=== PATIENT | male | born 1945 | race Caucasian/White ===

== ENCOUNTER → 2024-03-01 12:11 | Outpatient (CLI) | payer OTHER, SELFPAY ==
--- NOTE | 2024-03-01 12:19 | DI.ECHO.S_ITS ---
[facility] : : [address] : : [place] : : [id number] : : Phone: [phone] Echocardiogram Report + + :Name: FRANKLIN SOLANO Study Date: 03/01/2024 Height: 72 in : :Hospital ReadingLocation: Weight: 225 lb : : Gender: Male BSA: 2.2 m2 : :: 1945 Age: 79 yrs BP: 135/71 mmHg: :Reason For Study: HYPERTENSION : :Ordering Physician: SVETA, : :FREDA Performed By: Demi Da Silva : :Referring: FREDA BANGURA : + + Interpretation Summary Normal left ventricle size with ejection fraction 55-60%. Septal motion is consistent with conduction abnormality. The right ventricle is borderline dilated. The right ventricular systolic function is normal. There is mild biatrial enlargement. The aortic valve is slightly calcified. There is mild aortic regurgitation. There is mild mitral annular calcification. Procedure: A two-dimensional transthoracic echocardiogram with color flow and Doppler was performed. The study quality was technically adequate. There is no prior echocardiogram noted for this patient. The heart rate ranged between 60-76 bpm during the study. Left Ventricle: The left ventricle is normal in size and wall thickness. The ejection fraction is estimated to be 55-60%. Septal motion is consistent with conduction abnormality. There are no other obvious focal wall motion abnormalities. Diastolic function could not be accurately assessed due to unobtainable data. Right Ventricle: The right ventricle is borderline dilated. The right ventricular systolic function is normal. Atria: There is mild biatrial enlargement. There is no Doppler evidence for an interatrial shunt. Mitral Valve: There is mild mitral annular calcification. The mitral valve leaflets appear mildly thickened, but open well. There is trace mitral regurgitation. Aortic Valve: The aortic valve is trileaflet. The aortic valve opens well. The aortic valve is slightly calcified. There is no aortic valve stenosis. There is mild aortic regurgitation. Tricuspid Valve: The tricuspid valve is normal in structure and function. There is a trace or physiologic amount of tricuspid regurgitation. The right ventricular systolic pressure is estimated to be at least 27 mmHg based on an estimated right atrial pressure of 3 mm Hg. Pulmonic Valve: The pulmonic valve leaflets are thin and pliable; valve motion is normal. There is trace pulmonic regurgitation. Great Vessels: The aortic root is normal size. The dimensions of the ascending aorta are normal. The IVC is of normal diameter and collapses greater than 50% with a sniff. This suggests a low right atrial pressure of 3 mm Hg. Pericardium/ Pleura There is no pericardial effusion. There is no pleural effusion. MMode/2D Measurements & Calculations LVIDd: 5.1 cm LVOT diam: 2.1 cm LVIDs: 3.3 cm Ao root diam: 3.7 cm FS: 34.5 % asc Aorta Diam: 3.7 cm EPSS: 1.3 cm Ao Arch Diam (Prox Trans): 2.4 cm IVSd: 0.95 cm LVPWd: 0.77 cm LV mcelroy. diameter/BSA (cm/m^2): 2.3 LV sys. diameter/BSA (cm/m^2): 1.5 LA A2 area: 28.4 cm2 RA long axis: 6.8 cm LA A4 area: 26.3 cm2 RA area: 26.7 cm2 LA length (vol): 6.6 cm RA vol: 89.7 ml LA vol: 96.4 ml RA : 40.1 ml/m2 LA vol index: 43.1 ml/m2 IVC diam: 1.3 cm RVD1 (basal): 4.1 cm Doppler Measurements & Calculations Ao V2 max: 116.2 cm/sec LVOT Max Isai: 95.0 cm/sec Ao V2 mean: 80.1 cm/sec LV V1 max P.6 mmHg Ao max P.5 mmHg LV V1 VTI: 20.5 cm Ao mean P.9 mmHg SELINA(I,D): 3.2 cm2 Ao V2 VTI: 22.4 cm SELINA(V,D): 2.9 cm2 sev ratio: 0.91 SELINA indexed to BSA (cm^2/m^2): 1.4 MV E max isai: 68.7 cm/sec TR max isai: 246.8 cm/sec MV A max isai: 60.5 cm/sec TR max P.4 mmHg MV E/A: 1.1 PA V2 max: 101.0 cm/sec MV dec time: 0.22 sec PA V2 mean: 63.9 cm/sec PA mean P.9 mmHg PA pr([employer]el): 34.5 mmHg SV([facility]): 72.4 ml Electronically signed by: Hemalatha Cardozo on Reading Physician:03/01/2024 02:52 PM
[2024-03-01 12:47] LABS: Appearance Urine UA CLEAR; Bilirubin Urine UA NEGATIVE (NEGATIVE); Color Urine UA YELLOW; Glucose Urine UA 3+ g/dL (Negative); Ketones Urine UA NEGATIVE (NEGATIVE); Leukocyte Esterase Urine UA NEGATIVE (NEGATIVE); Nitrite Urine UA NEGATIVE (Negative); Occult Blood Urine UA NEGATIVE (Negative); Protein Urine UA NEGATIVE (Negative); Urobilinogen Urine UA 0.2 E.U./dL (0.2)
[2024-03-01 12:48] LABS: Urine Volume 10mL (spun)
[2024-03-01 12:52] LABS: Bacteria Urine None Seen; RBC Urine None Seen (0-5/HPF); Squamous Epithelial Cell Urine None Seen (0-5/HPF); WBC Urine None Seen (0-5/HPF)
[2024-03-01 12:53] LABS: Culture Indicated Urine Cult Not Indicated
[2024-03-01 13:58] LABS: Alanine Aminotransferase 13 IU/L (<50); Albumin 4.5 g/dL (3.5-5.0); Albumin Globulin Ratio 1.7 (1.0-2.8); Alkaline Phosphatase 88 U/L (38-126); Aspartate Aminotransferase 19 IU/L (17-59); BUN Creatinine Ratio 15.3 (6-22); Bilirubin Total 0.6 mg/dL (0.2-1.3); Blood Urea Nitrogen 19 mg/dL (9-20); Calcium 10.9 mg/dL (8.4-10.2); Carbon Dioxide 27 mmol/L (22-32); Chloride 98 mmol/L (98-107); Estimated Glomerular Filt Rate 60 mL/min (>60); Globulin 2.6 g/dL (1.7-4.1); Glucose 171 mg/dL (80-110); HEMOLYSIS < 15 (0-50); Potassium 4.4 mmol/L (3.4-5.1); Sodium 134 mmol/L (137-145); Total Protein 7.1 g/dL (6.3-8.2)
== END ==
PROVIDERS: Referring Provider Chiropractor; Visit Provider Chiropractor
DX: I34.81 Nonrheumatic mitral (valve) annulus calcification (principal); I35.1 Nonrheumatic aortic (valve) insufficiency; I10 Essential (primary) hypertension; E11.9 Type 2 diabetes mellitus without complications
CPT/HCPCS: 36415; 80053; 81001; 93306